=== PATIENT | female | born 1955 | race Caucasian/White ===

== ENCOUNTER 2023-01-27 13:32 | Emergency (ER) | payer MEDICARE, BC, SELFPAY ==
[2023-01-27 13:45] VITALS: BP 127/88; PULSE 122; RESP 18; TEMP 36.3; O2SAT 95; BMI 34.9
[2023-01-27] MEDS: 0.9 % SODIUM CHLORIDE 1000 ml 1,000 ML IV ×2 (14:10→15:48)
--- NOTE | 2023-01-27 14:13 | ED_ITS ---
HPI - General Adult General Chief complaint: Diabetic Related Problem <Evans Ojeda MD - Last Filed: 02/02/23 07:48> Stated complaint: [facility] ref-high glucose <Evans Ojeda MD - Last Filed: 02/02/23 07:48> Time Seen by Provider: 01/27/23 13:36 <Evans Ojeda MD - Last Filed: 02/02/23 07:48> History of Present Illness HPI narrative: Patient is a pleasant 59 year white female who has had elevated blood sugars the past. She has monitor them at home for period of time. More recently she had been not checking her blood sugars and developed over the last couple of weeks increased thirst increased urination frequency. She has been running blood sugars between 305 100 at home now. She called the clinic and asked her to come to the ER. The patient in the past had not wanted to be on metformin due to some friends reaction were made him ?grumpy?. Patient has no other treatment for diabetes and has otherwise generally quite healthy. Does take meds for hypertension elevated lipids, has headaches as well. The patient takes a small baby aspirin daily. She has had symptoms for couple of weeks as mention. She has been awake and alert, her visions been normal. She is ambulating normally, no chest pain, fevers, chills, cough, leg swelling or edema. Presents to ED for eval. <Evans Ojeda MD - Last Filed: 02/02/23 07:48> Related Data Home medications: Home Medications Medication Instructions Recorded Confirmed aspirin 81 mg tablet,delayed 81 mg PO DAILY 01/27/23 01/27/23 release atorvastatin 40 mg tablet 40 mg PO QPM 01/27/23 01/27/23 blood sugar diagnostic (Accu-Chek 01/27/23 01/27/23 Guide test strips) metoprolol tartrate 25 mg tablet 25 mg PO BID 01/27/23 01/27/23 sumatriptan succinate 6 mg/0.5 mL 6 mg subcut BID PRN migraine 01/27/23 01/27/23 subcutaneous pen injector Previous Rx's Medication Instructions Recorded cephalexin 500 mg capsule 500 mg PO TID 7 days #21 caps 01/27/23 metformin 500 mg tablet 500 mg PO BID #30 tabs 01/27/23 <Evans Ojeda MD - Last Filed: 02/02/23 07:48> Allergies/adverse reactions: Allergies Allergy/AdvReac Type Severity Reaction Status Date / Time No Known Drug Allergies Allergy Verified 01/27/23 13:42 <Evans Ojeda MD - Last Filed: 02/02/23 07:48> Review of Systems Status of ROS: Reports: 6 or more systems reviewed and unremarkable except as noted in History and below <Evans Ojeda MD - Last Filed: 02/02/23 07:48> PFSH [facility] Social History: Social History Smoking Status: Never smoker How often do you have a drink containing alcohol: never AUDIT-C Alcohol total score: 0 Non-prescribed substance use: denies use <Evans Ojeda MD - Last Filed: 02/02/23 07:48> Exam Narrative: Exam Narrative: Objective: Vital signs are within normal limits with the exception of pulse is elevated 122. Her O2 sat is 95%, she is afebrile. The HEENT is unremarkable . Patient ambulates normally, pulses regular, She is ambulatory neurologic appears grossly nonfocal. <Evans Ojeda MD - Last Filed: 02/02/23 07:48> Const: Vital Signs, click to edit/add: Vital Signs - 24 hr 01/27/23 13:45 01/27/23 17:29 01/27/23 18:17 Temperature 97.4 F L 97.4 F L Pulse Rate 90 Pulse Rate [Pulse Oximeter] 122 H 89 Respiratory Rate 18 14 14 Blood Pressure 121/86 Blood Pressure [Le ft Upper Arm] 127/88 121/86 Pulse Oximetry 95 95 Oxygen Delivery Me thod Room Air <Evans Ojeda MD - Last Filed: 02/02/23 07:48> Vital Signs, click to edit/add: Vital Signs - 24 hr 01/27/23 13:45 01/27/23 17:29 01/27/23 18:17 Temperature 97.4 F L 97.4 F L Pulse Rate 90 Pulse Rate [Pulse Oximeter] 122 H 89 Respiratory Rate 18 14 14 Blood Pressure 121/86 Blood Pressure [Le ft Upper Arm] 127/88 121/86 Pulse Oximetry 95 95 Oxygen Delivery Me thod Room Air <Mohit Pierre MD - Last Filed: 01/28/23 10:52> Course Vital Signs Vital signs: Initial Vital Signs Temperature 97.4 F L 01/27/23 13:45 Temperature Source Temporal Artery Scan 01/27/23 13:45 Pulse Rate 122 H 01/27/23 13:45 Pulse Rhythm Regular 01/27/23 13:45 Pulse Strength 3+ Normal 01/27/23 13:45 Respiratory Rate 18 01/27/23 13:45 Blood Pressure 127/88 01/27/23 13:45 Blood Pressure Mean 101 01/27/23 13:45 Blood Pressure Position Sitting 01/27/23 13:45 Pulse Oximetry 95 01/27/23 13:45 Oxygen Delivery Method Room Air 01/27/23 13:45 Vital Signs Temperature 97.4 F L 01/27/23 13:45 Pulse Rate 122 H 01/27/23 13:45 Respiratory Rate 18 01/27/23 13:45 Blood Pressure 127/88 01/27/23 13:45 Pulse Oximetry 95 01/27/23 13:45 Oxygen Delivery Method Room Air 01/27/23 13:45 Temperature 97.4 F L 01/27/23 18:17 Pulse Rate 89 01/27/23 18:17 Respiratory Rate 14 01/27/23 18:17 Blood Pressure 121/86 01/27/23 18:17 Pulse Oximetry 95 01/27/23 17:29 Oxygen Delivery Method Room Air 01/27/23 13:45 <Evans Ojeda MD - Last Filed: 02/02/23 07:48> Initial Vital Signs Temperature 97.4 F L 01/27/23 13:45 Temperature Source Temporal Artery Scan 01/27/23 13:45 Pulse Rate 122 H 01/27/23 13:45 Pulse Rhythm Regular 01/27/23 13:45 Pulse Strength 3+ Normal 01/27/23 13:45 Respiratory Rate 18 01/27/23 13:45 Blood Pressure 127/88 01/27/23 13:45 Blood Pressure Mean 101 01/27/23 13:45 Blood Pressure Position Sitting 01/27/23 13:45 Pulse Oximetry 95 01/27/23 13:45 Oxygen Delivery Method Room Air 01/27/23 13:45 Vital Signs Temperature 97.4 F L 01/27/23 13:45 Pulse Rate 122 H 01/27/23 13:45 Respiratory Rate 18 01/27/23 13:45 Blood Pressure 127/88 01/27/23 13:45 Pulse Oximetry 95 01/27/23 13:45 Oxygen Delivery Method Room Air 01/27/23 13:45 Temperature 97.4 F L 01/27/23 18:17 Pulse Rate 89 01/27/23 18:17 Respiratory Rate 14 01/27/23 18:17 Blood Pressure 121/86 01/27/23 18:17 Pulse Oximetry 95 01/27/23 17:29 Oxygen Delivery Method Room Air 01/27/23 13:45 <Mohit Pierre MD - Last Filed: 01/28/23 10:52> Medications Administered Medications: Discontinued Medications Generic Name Dose Route Start Last Admin Trade Name Freq PRN Reason Stop Dose Admin Sodium Chloride 1,000 mls @ 6,000 mls/hr 01/27/23 14:00 01/27/23 15:44 0.9 % Sodium Chloride 1000 Ml IV 01/27/23 14:09 Infused .Q10M MARJORIE Infusion Sodium Chloride 1,000 mls @ 6,000 mls/hr 01/27/23 15:45 01/27/23 17:02 0.9 % Sodium Chloride 1000 Ml IV 01/27/23 15:54 Infused .Q10M MARJORIE Infusion Insulin Human Regular 7 unit 01/27/23 14:56 01/27/23 15:06 Insulin Regular 100 Unit/Ml Inj SUBCUT 01/27/23 14:57 7 unit ONCE ONE Administration Insulin Human Regular 3 unit 01/27/23 16:05 01/27/23 16:23 Insulin Regular 100 Unit/Ml Inj SUBCUT 01/27/23 16:06 3 unit ONCE ONE Administration Metformin HCl 500 mg 01/27/23 15:00 01/27/23 15:33 Metformin 500 Mg Tablet PO 01/27/23 15:01 500 mg ONCE ONE Administration <Evans Ojeda MD - Last Filed: 02/02/23 07:48> Discontinued Medications Generic Name Dose Route Start Last Admin Trade Name Freq PRN Reason Stop Dose Admin Sodium Chloride 1,000 mls @ 6,000 mls/hr 01/27/23 14:00 01/27/23 15:44 0.9 % Sodium Chloride 1000 Ml IV 01/27/23 14:09 Infused .Q10M MARJORIE Infusion Sodium Chloride 1,000 mls @ 6,000 mls/hr 01/27/23 15:45 01/27/23 17:02 0.9 % Sodium Chloride 1000 Ml IV 01/27/23 15:54 Infused .Q10M MARJORIE Infusion Insulin Human Regular 7 unit 01/27/23 14:56 01/27/23 15:06 Insulin Regular 100 Unit/Ml Inj SUBCUT 01/27/23 14:57 7 unit ONCE ONE Administration Insulin Human Regular 3 unit 01/27/23 16:05 01/27/23 16:23 Insulin Regular 100 Unit/Ml Inj SUBCUT 01/27/23 16:06 3 unit ONCE ONE Administration Metformin HCl 500 mg 01/27/23 15:00 01/27/23 15:33 Metformin 500 Mg Tablet PO 01/27/23 15:01 500 mg ONCE ONE Administration <Mohit Pierre MD - Last Filed: 01/28/23 10:52> Medical Decision Making MDM Narrative Medical decision making narrative: [age] year white female with diabetes, presents with elevated blood sugar. At this point would be reasonable to check her labs, give her some IV fluid a L normal saline, will check her A1c as well as her Chem profile and CBC. Depending on her blood sugar she may need a small dose of regular insulin and starting metformin. [facility] her within the next couple of days. Continue to monitor blood sugars at home. Discussed these findings with Dr. Pan in follow-up. Addendum 3:00 p.m.: The patient has a blood sugar of 610. She has not had any diabetic medications in the past. Will give her 7 units of subcu regular insulin. Also started on metformin 500 mg b.i.d.. Will need to continue to monitor blood sugars. Will watch him for the next couple of hours in the ER make sure it has come down some. I think the fluid hydration will help her as well. Addendum 4:06 p.m. patient's blood sugars down 450. I will give her an additional 3 units of regular insulin. She will get another L of fluid. We will start metformin 500 she can start 500 b.i.d. for the next couple of weeks. Hopefully she will improve her blood sugar since she is insulin naive and hypoglycemic night heave, and will keep track of her blood sugars at home and notify her primary care doctor with the results. <Evans Ojeda MD - Last Filed: 02/02/23 07:48> [age] year white female with diabetes, presents with elevated blood sugar. At this point would be reasonable to check her labs, give her some IV fluid a L normal saline, will check her A1c as well as her Chem profile and CBC. Depending on her blood sugar she may need a small dose of regular insulin and starting metformin. The patient sees doctors [facility] in will see her within the next couple of days. Continue to monitor blood sugars at home. Discussed these findings with Dr. Pan in follow-up. Addendum 3:00 p.m.: The patient has a blood sugar of 610. She has not had any diabetic medications in the past. Will give her 7 units of subcu regular insulin. Also started on metformin 500 mg b.i.d.. Will need to continue to monitor blood sugars. Will watch him for the next couple of hours in the ER make sure it has come down some. I think the fluid hydration will help her as well. Addendum 4:06 p.m. patient's blood sugars down 450. I will give her an additional 3 units of regular insulin. She will get another L of fluid. We will start metformin 500 she can start 500 b.i.d. for the next couple of weeks. Hopefully she will improve her blood sugar since she is insulin naive and hypoglycemic night he, and will keep track of her blood sugars at home and notify her primary care doctor with the results. Ignacio -- received this patient at change of shift. Newly diagnosed with diabetes. Blood sugars have been improving with IV hydration and bumps of regular insulin. Pending recheck shortly. Looking for continued trend down in blood sugar. Sodium as expected slightly low at 132. Potassium 4.2. Will also order urinalysis. Blood sugar at 436 on recheck. Urinalysis is positive for nitrite. Absent leukocyte esterase. 2-5 red and white cells on microscopy. Trace ketones 3+ glucose. In this setting this urinalysis might be significant. Certainly nitrite would be a red flag. I would consider treating here. Discussed at length etiology, management and treatment of diabetes. She is already familiar with blood sugar checks. See patient discharge plan <Mohit Pierre MD - Last Filed: 01/28/23 10:52> Lab Data Lab results reviewed: Yes I reviewed the patient's lab results <Mohit Pierre MD - Last Filed: 01/28/23 10:52> Labs: Lab Results 01/27/23 01/27/23 Range/Units 14:10 17:00 WBC 7.56 (4.50-11.00) K/uL RBC 5.45 H (4.00-5.20) m/uL Hgb 16.3 H (12.0-16.0) gm/dL Hct 46.5 (33.0-51.0) % MCV 85 (80-100) fL MCH 30 (26-34) pg MCHC 35 (32-36) gm/dL RDW Coeff of Wen 11.5 (11.5-15.5) % Plt Count 212 (140-440) K/uL Neut % (Auto) 69.9 (42.0-72.0) % Lymph % (Auto) 20.2 (20-44) % [place] % (Auto) 8.1 (0.0-11.0) % Eos % (Auto) 0.8 (0.0-7.0) % Baso % (Auto) 0.9 (0.0-3.0) % Neut # (Auto) 5.28 (1.7-7.0) K/uL Lymph # (Auto) 1.53 (0.90-2.90) K/uL [place] # (Auto) 0.60 (0.00-0.90) K/UL Eos # (Auto) 0.06 (0.00-0.50) K/uL Baso # (Auto) 0.07 (0.00-0.30) K/uL Abs Immat Gran (auto) 0.01 (0.00-0.30) K/uL Imm/Tot Granulo (auto) 0.1 % Sodium 132 L (135-149) mmol/L Potassium 4.2 (3.6-5.1) mmol/L Chloride 96 (96-114) mmol/L Carbon Dioxide 24 (20-32) mmol/L Anion Gap 12 (7-15) mEq/L BUN 21 (7-30) mg/dL Creatinine 0.8 (0.5-1.5) mg/dL Estimated Creat Clear 42.59 Estimated GFR 80 ml/min Glucose 610 H* (60-115) mg/dL Hemoglobin A1c 11.0 H (0-5.6) % Calcium 9.5 (8.4-10.6) mg/dL C-Reactive Protein 0.6 (0.5-1.0) mg/dL Urine Color Yellow (Yellow) Urine Appearance Cloudy A (Clear) Urine pH 5.0 (5.0-8.5) Ur Specific [place] 1.010 (1.000-1.030) Urine Protein Negative (Negative) Urine Glucose (UA) 3+ A (Negative) Urine Ketones Trace A (Negative) Urine Blood Trace-intact A (Negative) Urine Nitrite Positive A (Negative) Urine Bilirubin Negative (Negative) Urine Urobilinogen 0.2 (0.2-1.0) Ur Leukocyte Esterase Negative (Negative) Urine RBC 2-5 A (0-2) Urine WBC 2-5 (0-5) Ur Squamous Epith Cells Few (None-Few) Urine Bacteria Few A (None) <Evans Ojeda MD - Last Filed: 02/02/23 07:48> Lab Results 01/27/23 01/27/23 Range/Units 14:10 17:00 WBC 7.56 (4.50-11.00) K/uL RBC 5.45 H (4.00-5.20) m/uL Hgb 16.3 H (12.0-16.0) gm/dL Hct 46.5 (33.0-51.0) % MCV 85 (80-100) fL MCH 30 (26-34) pg MCHC 35 (32-36) gm/dL RDW Coeff of Wen 11.5 (11.5-15.5) % Plt Count 212 (140-440) K/uL Neut % (Auto) 69.9 (42.0-72.0) % Lymph % (Auto) 20.2 (20-44) % [place] % (Auto) 8.1 (0.0-11.0) % Eos % (Auto) 0.8 (0.0-7.0) % Baso % (Auto) 0.9 (0.0-3.0) % Neut # (Auto) 5.28 (1.7-7.0) K/uL Lymph # (Auto) 1.53 (0.90-2.90) K/uL [place] # (Auto) 0.60 (0.00-0.90) K/UL Eos # (Auto) 0.06 (0.00-0.50) K/uL Baso # (Auto) 0.07 (0.00-0.30) K/uL Abs Immat Gran (auto) 0.01 (0.00-0.30) K/uL Imm/Tot Granulo (auto) 0.1 % Sodium 132 L (135-149) mmol/L Potassium 4.2 (3.6-5.1) mmol/L Chloride 96 (96-114) mmol/L Carbon Dioxide 24 (20-32) mmol/L Anion Gap 12 (7-15) mEq/L BUN 21 (7-30) mg/dL Creatinine 0.8 (0.5-1.5) mg/dL Estimated Creat Clear 42.59 Estimated GFR 80 ml/min Glucose 610 H* (60-115) mg/dL Hemoglobin A1c 11.0 H (0-5.6) % Calcium 9.5 (8.4-10.6) mg/dL C-Reactive Protein 0.6 (0.5-1.0) mg/dL Urine Color Yellow (Yellow) Urine Appearance Cloudy A (Clear) Urine pH 5.0 (5.0-8.5) Ur Specific [place] 1.010 (1.000-1.030) Urine Protein Negative (Negative) Urine Glucose (UA) 3+ A (Negative) Urine Ketones Trace A (Negative) Urine Blood Trace-intact A (Negative) Urine Nitrite Positive A (Negative) Urine Bilirubin Negative (Negative) Urine Urobilinogen 0.2 (0.2-1.0) Ur Leukocyte Esterase Negative (Negative) Urine RBC 2-5 A (0-2) Urine WBC 2-5 (0-5) Ur Squamous Epith Cells Few (None-Few) Urine Bacteria Few A (None) <Mohit Pierre MD - Last Filed: 01/28/23 10:52> Discharge Plan Discharge Clinical Impression: Diabetes, Cystitis, Dehydration <Evans Ojeda MD - Last Filed: 02/02/23 07:48> Patient Disposition: Home w/ Parent or Adult <Evans Ojeda MD - Last Filed: 02/02/23 07:48> Condition: Improved <Evans Ojeda MD - Last Filed: 02/02/23 07:48> Additional Instructions: Diabetic diet, recheck with your regular doctor next couple of days, keep track of your blood sugars 3 to 4 times a day before meals and before bed. Start metformin 500 mg 2 times a day. Will also have you drink adequate fluid intake. Return if problems or concerns in the interim prior to clinic visit. ___ Do focus on hydration. Unsugared liquids are best. Juices would be considered sugared but okay in moderation. You possibly have a urinary tract infection/cystitis. I think it would be prudent to treat. Urine culture will be pending. As discussed checking your blood sugars fasting in the morning, 2 hours after a meal and if you check them in the morning it can be helpful also to check before bed. Go in with a week of blood sugar readings in maybe a diet journal to primary care follow-up in a week maybe 10 days. Would be helpful to meet with a [facility] [place] as well. <Evans Ojeda MD - Last Filed: 02/02/23 07:48> Activity Level: Light activity <Evans Ojeda MD - Last Filed: 02/02/23 07:48> Light activity <Mohit Pierre MD - Last Filed: 01/28/23 10:52> Discharge Diet: Diabetic <Evans Ojeda MD - Last Filed: 02/02/23 07:48> Diabetic <Mohit Pierre MD - Last Filed: 01/28/23 10:52> Prescriptions: New metformin 500 mg tablet 500 mg PO BID Qty: 30 0RF cephalexin 500 mg capsule 500 mg PO TID 7 Days Qty: 21 0RF No Action atorvastatin 40 mg tablet 40 mg PO QPM (DME) Accu-Chek Guide test strips Strip MISCELLANEOUS DAILY aspirin 81 mg tablet,delayed release (DR/EC) 81 mg PO DAILY sumatriptan succinate 6 mg/0.5 mL pen injector 6 mg subcut BID PRN (Reason: migraine) metoprolol tartrate 25 mg tablet 25 mg PO BID <Evans Ojeda MD - Last Filed: 02/02/23 07:48> Follow Up/Referrals: Brii Pan MD [Primary Care Provider] - <Evans Ojeda MD - Last Filed: 02/02/23 07:48> Stand Alone Forms: MyHealth Info Instructions <Evans Ojeda MD - Last Filed: 02/02/23 07:48>
[2023-01-27 14:25] LABS: Basophils Absolute Auto 0.07 K/uL (0.00-0.30); Basophils Percent Auto 0.9 % (0.0-3.0); Eosinophils Absolute Auto 0.06 K/uL (0.00-0.50); Eosinophils Percent Auto 0.8 % (0.0-7.0); Hematocrit 46.5 % (33.0-51.0); Hemoglobin* 16.3 gm/dL (12.0-16.0); Immature Granulocytes Abs Auto 0.01 K/uL (0.00-0.30); Immature Granulocytes Pct Auto 0.1 %; Lymphocytes Absolute Auto 1.53 K/uL (0.90-2.90); Lymphocytes Percent Auto 20.2 % (20-44); Mean Corpuscular HGB Conc 35 gm/dL (32-36); Mean Corpuscular Hemoglobin 30 pg (26-34); Mean Corpuscular Volume 85 fL (80-100); Monocytes Percent Auto 8.1 % (0.0-11.0); Neutrophils Absolute Auto 5.28 K/uL (1.7-7.0); Neutrophils Percent Auto 69.9 % (42.0-72.0); Platelet Count* 212 K/uL (140-440); RDW Coefficient of Variation % 11.5 % (11.5-15.5); Red Blood Count 5.45 m/uL (4.00-5.20); White Blood Count* 7.56 K/uL (4.50-11.00)
[2023-01-27 14:33] LABS: Slide Review Reflex No
[2023-01-27 14:42] LABS: Chloride* 96 mmol/L (96-114); Sodium* 132 mmol/L (135-149)
[2023-01-27 14:43] LABS: Potassium* 4.2 mmol/L (3.6-5.1)
[2023-01-27 14:45] LABS: Creatinine* 0.8 mg/dL (0.5-1.5); Est. Creatinine Clearance* 42.59; Estimated Glomerular Filt Rate 80 ml/min
[2023-01-27 14:46] LABS: Anion Gap 12 mEq/L (7-15); Blood Urea Nitrogen* 21 mg/dL (7-30); Calcium* 9.5 mg/dL (8.4-10.6); Carbon Dioxide* 24 mmol/L (20-32)
[2023-01-27 14:49] LABS: C Reactive Protein* 0.6 mg/dL (0.5-1.0)
[2023-01-27 14:52] LABS: Glucose* 610 mg/dL (60-115)
[2023-01-27] MEDS: METFORMIN 500 MG TABLET PO (15:33)
[2023-01-27 17:27] LABS: Appearance Urine Cloudy (Clear); Bilirubin Urine Negative (Negative); Blood Urine Trace-intact (Negative); Color Urine Yellow (Yellow); Glucose Urine 3+ (Negative); Ketones Urine Trace (Negative); Leukocyte Esterase Urine Negative (Negative); Nitrite Urine Positive (Negative); Protein Urine Negative (Negative); Urobilinogen Urine 0.2 (0.2-1.0)
[2023-01-27 17:29] VITALS: BP 121/86; PULSE 90; RESP 14; O2SAT 95
[2023-01-27 17:40] LABS: Bacteria Urine Few; Squamous Epithelial Cell Urine Few (None-Few)
[2023-01-27 18:17] VITALS: BP 121/86; PULSE 89; RESP 14; TEMP 36.3
== END 2023-01-27 18:17 | disposition home or self-care (01) ==
PROVIDERS: Family Medicine; Emergency Provider Family Medicine; PCP Family Medicine
DX: E11.65 Type 2 diabetes mellitus with hyperglycemia (principal); N30.90 Cystitis, unspecified without hematuria; E86.0 Dehydration
CPT/HCPCS: 36415; 80048; 81001; 82962; 83036; 85025; 86140; 87086; 87186; 96360; 99284; 99285; A9270; J7030